=== PATIENT | male | born 2000 | race Two or more races ===

== ENCOUNTER 2024-09-26 20:18 | Emergency (ER) | payer OTHER, SELFPAY ==
[2024-09-26 20:20] VITALS: BP 129/77; PULSE 72; RESP 16; TEMP 36.9; O2SAT 97
[2024-09-26 20:24] VITALS: BMI 28.5
--- NOTE | 2024-09-26 20:30 | XR_ITS ---
Examination: Hand, right 3 views Technique: Hand AP, oblique, lateral 3 views Date and time of exam: September 26, 20242033 hours INDICATIONS: Dog bite to the hand today, pain FINDINGS: No fracture. No opaque foreign body No dislocation IMPRESSION: No opaque foreign body
--- NOTE | 2024-09-26 20:31 | PD.EDANIML ---
ED Animal Bite RME/HPI General Chief Complaint: Animal Bite Stated Complaint: DOG BITE Time Seen by Provider: 09/26/24 20:28 Arrival date/time: 09/26/24 20:18 Limitations: no limitations RME / HPI RME / HPI narrative: 23-year-old male he works for [employer] was attempting to assist [place] the dog bit him along the dorsal aspect of his right thumb. He has full range of motion of his hand. Puncture wounds are present. Distal sensation is intact. He does not recall his last tetanus shot. He has no chronic medical disease. He has no drug allergies. He has no other acute concerns. Related Data Previous Rx's ?Medication ?Instructions ?Recorded amoxicillin 875 mg-potassium 1 tab PO Q12H #14 tabs 09/26/24 clavulanate 125 mg tablet Allergies Allergy/AdvReac Type Severity Reaction Status Date / Time No Known Allergies Allergy Verified 09/26/24 20:19 Review of Systems Review of Systems Systems Reviewed: All systems reviewed, normal except as documented ED Exam General Limitations: Present no limitations General appearance: Present alert and in no apparent distress Head Head exam: Present atraumatic Eye Eye exam: Present normal appearance, PERRL and EOMI ENT ENT exam: Present normal exam, normal oropharynx and mucous membranes moist Neck Neck exam: Present normal inspection, full ROM and trachea midline Chest Chest inspection: Present normal inspection and symmetric chest wall rise Respiratory Respiratory exam: Present normal lung sounds bilaterally Cardiovascular Cardiovascular exam: Present regular rate, normal rhythm and normal heart sounds Abdominal Exam Abdominal exam: Present soft and normal bowel sounds Extremities Exam Extremities exam: Present normal inspection and full ROM Back Exam Back exam: Present normal inspection and full ROM Neurological Exam Neurological exam: Present alert, oriented X3 and CN II-XII intact Psychiatric Psychiatric exam: Present normal affect and normal mood Skin Skin exam: Present warm, dry, normal color and other (Few puncture wounds at the dorsum of the right thumb) Course Quality Measures none Orders Category Date Time Status XR hand comp RT min 3V Stat Exams 09/26/24 20:30 Completed Amoxicillin/Pot Clav 875 [Augmentin 875] Med 09/26/24 20:30 Discontinued 1 tab PO X1 ONE TET,DIP/PERT AC (Adult)-Tdap [Boostrix Adult (Tdap) Med 09/26/24 20:30 Discontinued Vacc] 0.5 ml IMI .ONCE ONE Vital Signs Vital signs: Vital Signs Temperature 98.4 F 09/26/24 20:20 Pulse Rate 72 09/26/24 20:20 Respiratory Rate 16 09/26/24 20:20 Blood Pressure 129/77 09/26/24 20:20 Pulse Oximetry (%) 97 09/26/24 20:20 Oxygen Delivery Method Room Air 09/26/24 20:20 Animal Bite MDM Narrative MDM Narrative:: 23-year-old male is here today with dog bite at his right thumb. He has full range of motion of his hand with distal sensation. He has no chronic medical illness. He is given a dose of Augmentin and tetanus booster here. Plain films were obtained which reveal no acute osseous injury or foreign body. Patient will be discharged with a prescription of Augmentin. He agrees to continue wound care at home. Follow-up with occupational health as needed. Return as needed for any worsening emergent changes Patient data External records reviewed:: None Clinical information provided by:: patient Social determinants that could affect healthcare access:: none Patient has the following chronic illnesses:: n/a How is presenting disease/condition affected by chronic disease/condition?: no chronic disease Evaluation data The following diagnostics were reviewed and interpreted by me:: radiology exam(s) (No acute osseous injury or foreign body) Lab and/or radiology exams considered but not ordered:: n/a Interpretation Summary: Workup is unremarkable Medications / Prescriptions Medications or Prescriptions considered but not ordered:: n/a Medication administrations:: Medication Administration History Discontinued Medications Amoxicillin/Clavulanate Potassium (Amoxicillin/Pot Clav 875 Tablet) 1 tab PO X1 ONE Stop: 09/26/24 20:31 Last Admin: 09/26/24 20:52 Dose: 1 tab Documented By: KETTY Diphtheria/Tetanus/Acell Pertussis (Diphth,Pertuss(Acell),Tet Vac 0.5 Ml Syr- Adult) 0.5 ml IMi .ONCE ONE Stop: 09/26/24 20:31 Last Admin: 09/26/24 20:52 Dose: 0.5 ml Documented By: KETTY Augmentin Consultations Consultation(s) initiated? (list below): No Diagnosis Differential diagnosis animal bite: bite by animal and dog bite Most likely diagnosis given after review of the tests above:: Dog bite right hand Admission Indicated Admission indicated?: not indicated Admission Request Was there a request for admission?: No Disposition Plan Disposition Plan: Discharge Discharge Attestation Discharge Attestation: The patient and all family members were given an opportunity to ask questions and understood the discharge instructions. Discharge instructions specifically effects, indications for sooner follow up or return to the emergency department, and the expected course of current diagnosis. Patient condition: Stable Discharge Plan Plan Patient Disposition: HOME (Self Care) Patient condition on transfer: Stable Prescriptions/Referrals Prescriptions/Med Rec: New amoxicillin-pot clavulanate 875-125 mg tablet 1 tab PO Q12H Qty: 14 0RF Problem List Clinical Impression: Dog bite Patient/Caregiver Discharge Instructions Education Materials: ED Dog Bite Additional Instructions: Use Tylenol and ibuprofen for comfort. Keep wound clean with soap and water. Do not apply any hydrogenperoxide, alcohol, or iodine. Follow-up with occupational health for recheck. Return as needed for any worsening or emergent changes Print Language: Icelandic Stand Alone Forms: Urszula Award Info., Patient Portal Info Letter
[2024-09-26] MEDS: DIPHTH,PERTUSS(ACELL),TET VAC 0.5 ML SYR- ADULT IMi (20:52)
[2024-09-26] MEDS: AMOXICILLIN/POT CLAV 875 TABLET 1 TAB PO (20:52)
== END 2024-09-26 21:13 | disposition home or self-care (01) ==
LOC: SERX 20:41
PROVIDERS: Emergency Provider Emergency Medicine
DX: S61.051A Open bite of right thumb without damage to nail, initial encounter (principal); W54.0XXA Bitten by dog, initial encounter; Z23 Encounter for immunization
CPT/HCPCS: 73130; 90471; 90715; 99283; A9270